=== PATIENT | female | born 2000 | race Asian ===

== ENCOUNTER 2019-01-25 21:23 | Emergency (ER) | payer SELFPAY ==
[~2019-01-25] VITALS: Ht 149.9 cm; Wt 48.1 kg
[2019-01-25 21:35] VITALS: Ht 149.9 cm; Wt 48.1 kg
[2019-01-25 22:46] VITALS: BP 126/91
== END 2019-01-25 22:47 | disposition home or self-care (01) ==
LOC: ED 21:23
DX: S06.0X0A Concussion without loss of consciousness, initial encounter (principal); S50.12XA Contusion of left forearm, initial encounter; S80.11XA Contusion of right lower leg, initial encounter; Y04.8XXA Assault by other bodily force, initial encounter; Y93.89 Activity, other specified; Y92.89 Other specified places as the place of occurrence of the external cause; Y99.8 Other external cause status